=== PATIENT | male | born 2000 | race Two or more races ===

== ENCOUNTER 2021-02-15 08:07 | Outpatient (REF) | payer OTHER, SELFPAY ==
--- NOTE | 2021-02-17 12:45 | MHC.AU.ANO ---
Adult Audiological Evaluation Date of Visit: 02/15/21 Sales Support Rep Used: Not Applicable Reason for Appointment: Audiologic evaluation due to ear pain and occasional tinnitus. 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 He uses cushioned headphones, but needs to increase the loudness of different parts of the music to when mixing. When the music loudness increases, it causes ear pain, and occasional tinnitus with a fluctuating change in hearing. Chucho also recently started working in an [employer] shop where he is exposed to machines. Does patient feel they have a hearing loss?: Yes If Yes, Which Ear?: Both Ears When Was Hearing Difficulty First Noticed?: Later part 2019 Has hearing been tested previously?: No Hearing Handicap Inventory: HHIE SCORE: 8 Based on HHIE score, patient has: No perceived hearing handicap Ear History: Recent Ear Pain: Both ears with loud music Bothersome Tinnitus/Ringing/Noises in Ears: Occasionally in both ears with loud music Ear used on the phone: Right Ear History of occupational noise exposure?: Yes History: History: No Medical History: Medical History: Unremarkable Medical History Medication List: None Otoscopy: Right Ear: Unremarkable Left Ear: Unremarkable Tympanometry: Tympanometry performed due to: To assess integrity of the middle ear system Right Ear: Normal Middle Ear System (Type A) Left Ear: Normal Middle Ear System (Type A) Otoacoustic Emissions Frequency Range Used: 1.5-12 kHz Right Ear Results: Present emissions 1500-10,000 Hz. Absent 12,000 Hz Analysis: Present emissions suggest normal cochlear function Rules out peripheral hearing loss greater than a mild degree Left Ear Results: Present Emissions Analysis: Present emissions suggest normal cochlear function Rules out peripheral hearing loss greater than a mild degree Hearing Evaluation: Transducer(s) Used: Insert Earphones Method: Conventional Audiometry Stimuli Used: Pure Tones Right Ear: Description of Hearing: Normal hearing thresholds 250-8000 Hz Left Ear: Description of Hearing: Normal hearing thresholds 250-8000 Hz Speech Recognition Threshold (SRT): Method Used: Monitored Live Voice Stimuli Used: Spondee Words Right Ear: 0 dB HL Left Ear: 0 dB HL Word Discrimination: Method: Recorded Lists Word Lists Used: NU-6 Right Ear: 100% at 40 dB HL Left Ear: 100% at 40 dB HL Interpretation of Results: Chucho's reported ear symptoms are likely related to the level of music he is intermittently exposed to. While it is very important for Chucho to hear each part of his music production, the auditory system needs to be protected. It is impressive Chucho recognized this potential problem and sought this evaluation. We discussed various earphone products which could help him hear the different music parts without having to increase the volume. Recommendations: - No further audiological action is indicated at this time. - Hearing protection should be used when around loud noise. * Advise Chucho to obtain new earphone/headphones made specifically for music mixing/production. Any custom product can unfortunately cost a great deal of money. I recommend he research the website [employer] for non-custom in-the-ear monitors which are more reasonably priced. If cushioned headphones are desired, a product such as Sennheiser HD 600 Open Dynamic HiFi Professional Headphones may meet his needs. In researching products, it appears the in-the-ear monitors may provide more protection as they don't require the music to be increased as much to hear the various music parts. Diagnosis: Primary Diagnosis: H93.293 Abnormal Auditory Perception Secondary Diagnosis: H93.13 Tinnitus, Bilateral Services Performed: Comprehensive Audiological Evaluation (CPT 54343) Diagnostic Otoacoustic Emissions (CPT 61386, 26+TC) Tympanometry (CPT 08889) Signature: Provider: Emelina Padilla, [facility]
== END 2021-02-15 08:08 | disposition home or self-care (01) ==
LOC: HO.SH 08:07
PROVIDERS: Visit Provider Pediatrics
DX: H93.293 Other abnormal auditory perceptions, bilateral (principal); H93.13 Tinnitus, bilateral
CPT/HCPCS: 92557; 92567; 92588

== ENCOUNTER 2024-10-14 08:25 | Outpatient (REF) | payer OTHER, SELFPAY ==
--- NOTE | ~2024-10-14 | XR_ITS ---
CLINICAL HISTORY: M25.569 - Pain in unspecified knee Right knee three views Comparison: None Findings: No acute fracture or dislocation noted. No significant joint effusion identified. No soft tissue foreign body. Impression: No acute bony abnormality Standing bilateral AP knees Comparison: None Findings: No acute fracture or dislocation identified. No acute focal bony abnormality. No radiopaque foreign body noted. Impression: No acute bony abnormality This document has been electronically signed by: Ernie Andrea MD on 10/14/2024 20:59:58
--- OUTSIDE RECORDS SUMMARY | 2024-10-15 08:33 | XMS_ITS | Clinical Summary ---
Author Organization [email or web address] it Address [address] [place] [address] Care Team Providers Care Die Equipment Operator Name Role Phone Otilio Jackman MD Primary Care Provider [phone] Allergies No known active allergies Active Problems Problem Noted Date Diagnosed Date Tinnitus 03/07/2021 Overview (05/05/2024): 02/17/2021 normal hearing. Most likely related with level of music he is exposed to. Recommendations given. 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 Immunizations Name Administration Dates Next Due DTaP (Infanrix) 6wks to less than 7yo ,10/22/2002,2001,08/21,2001 [id number] (Pentacel) 2mo to less than 5yo 08/20/2002,2001,2001,07/01 [...] 8:30 AM EDT Office Visit Adult Medicine [address] [address] Rashida Jarrell PA [address] [place] [id number] Health Maintenance Due Date Last Done Comments [...] Recently Relevant to Health Maintenance Care Teams Die Equipment Operator Relationship Specialty Start Date End Date Otilio Jackman MD [address] [place] [address] PCP - General Internal Medicine 09/26/21
== END 2024-10-14 08:26 | disposition home or self-care (01) ==
LOC: HO.HOSX 08:25
PROVIDERS: Visit Provider Physician Assistant
DX: M25.561 Pain in right knee (principal)
CPT/HCPCS: 73562

== ENCOUNTER 2024-10-14 08:55 | Outpatient (AMB) | payer OTHER, SELFPAY ==
--- NOTE | 2024-10-14 09:00 | A.OFFVIS_ITS ---
Vital Signs 10/14/24 09:15 Height 5 ft 6 in Weight 130 lb BMI 21.0 Intake Visit Reasons: New Pt - right knee injury, DOI 08/03/24 Intake Note: Chucho is a 24 year old male who presents today as a new patient for a evaluation of his right knee pain, DOI 08/03/24. Patient states that he was playing basketball and he felt his knee move out of place. He mentions that his pain is on the medial and lateral aspect of the knee. Patient notices that his pain is worse when he is putting all his weight on the right side. He has tried and failed icing, elevation, taking Tylenol/ibuprofen or Motrin. IMPRESSION (08/17/24): There is no fracture or other acute abnormality. The joint space are maintained. There is no joint effusion. Allergies No Known Allergies Allergy (Verified 10/14/24 09:14) HPI HPI New Pt - right knee injury, DOI 08/03/24: Details: Mr. Mccartney is a 24-year-old male who presents to the office today for evaluation of a right knee injury that he sustained on 08/03/2024 while playing basketball. He believes he was doing a lay-up and on his way up to the hoop he believes that he stepped on someone's foot and twisted his knee. He felt immediate pain at that time but did not seek medical attention feeling as though it would resolve on its own. The pain has improved since that initial injury however he has episodes of sharp pain that lasts for a few moments and then slowly resolves. He finds more with twisting motions that he has an increase in this pain. 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 No tenderness to the medial or lateral joint lines. Mild discomfort with patellar grind. Negative Freida's. Negative anterior drawer. NVI. Assessment & Plan Assessment & Plan (1) Internal derangement of knee: Code(s): M23.90 - Unspecified internal derangement of unspecified knee Category: Medical Plan Mr. Mccartney is a 24-year-old male who presents to the office today for evaluation of a right knee injury that he sustained on 08/03/2024 while playing basketball. He believes he was doing a lay-up and on his way up to the hoop he believes that he stepped on someone's foot and twisted his knee. He felt immediate pain at that time but did not seek medical attention feeling as though it would resolve on its own. The pain has improved since that initial injury however he has episodes of sharp pain that lasts for a few moments and then slowly resolves. He finds more with twisting motions that he has an increase in this pain. 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 While in the office today, we discussed the roles of physical therapy and MRI imaging. A physical therapy order has been placed while in the office today. Additionally, an MRI was ordered to further evaluate the integrity of the knee and the surrounding structures. Based off of the patient's symptoms it is presenting as though he may have a meniscal injury but additionally may also have some underlying patella pathology given the location is deep inside of the knee and difficult to pinpoint. The patient will follow up after MRI is obtained, sooner if needed. X-rays of the right knee which were obtained while in the office today and were reviewed by me, Gerda Gauthier PA-C, revealed no acute fracture or dislocation. Orders: Orders XR knee RT 3V Today M25.569 - Pain in unspecified knee Coding Level of Care Code New Pt Level 4 (09510) Diagnoses Internal derangement of knee M23.90
[2024-10-14 09:15] VITALS: BMI 21.0
--- OUTSIDE RECORDS SUMMARY | 2024-10-14 09:35 | XMS_ITS | Clinical Summary ---
Author Organization [facility] it Address [address] [place] [address] Care Team Providers Care Lead Simulation Modeling Engineer Name Role Phone Otilio Jackman MD Primary Care Provider Allergies No known active allergies Active Problems Problem Noted Date Diagnosed Date Tinnitus 03/07/2021 Overview (05/05/2024): 02/17/2021 normal hearing. Most likely related with level of music he is exposed to. Recommendations given. 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 Immunizations Name Administration Dates Next Due DTaP (Infanrix) 6wks to less than 7yo ,10/22/2002,2001,08/21,2001 [id number] (Pentacel) 2mo to less than 5yo 08/20/2002,2001,2001,07/01 H1N1 Inj Preservative Free 04/03/2009 HPV 9-valent (Gardisil) 9yo to less than 46yo 05/31/2016,11/16/2015 HPV, Quadrivalent 04/22/2014 Hepatitis A Pediatric (Havri x; Vaqta) 12mo to less than 19yo 10/26/2010,11/03/2003,04/30/2003 Hepatitis B Pediatric (Enger ix B; Recombivax HB) to less than 20 yo 01/22/2002,2001,2001 IPV Inactivated polio (Ipol) 6wks and older 05/19/2005,2002,01/22/2002,08/21,2001 Influenza trivalent, 0.5mL, preservative free (Fluarix; FluLaval; Fluzone) ages 6mo and older (Afluria) 3 years and older 02/05/2019,03/28/2018,03/24/2017,02/11,03/09/2015,04/22/2014,03/14/2013 ,01/25/2012,03/07/2011,02/28/2010 MMR, measles mumps and rubel la Live (Priorix; M-M-R II) 12mo and older 05/19/2005,08/20/2002 Meningococcal MCV4P 10/29/2017,03/14/2013 Pneumococcal Conjugate Vacci ne, 7 Valent 10/22/2002,2001,2001,07/01 Tdap Tetanus diptheria acell ular pertussis (Boostrix; Adacel) 7yo and older 02/08/2024,03/14/2013 Varicella live (Varivax) 12m o and older 02/28/2010,04/23/2002 Surgical History Surgery Date Site/Laterality Comments OTHER SURGICAL HISTORY PROCEDURE: DENIES PREVIOUS SURGERY Medical History Medical History Date Comments Contact dermatitis and other eczema due to other specified agent DX:Contact dermatitis and ot her eczema due to other specified agent Lactose intolerance DX:Lactose i ntolerance Spermatocele 11/17/2014 DX:Spermatocele; COMMENT: At 14 yo, confirmed with US, seen by urology observation recommended, no FU mentioned on note. 12/27 increasing in size, ref to Uro, to have FU US then Fu to discuss 02/26 Uro: surg vs observation, mother considering surg, after sports in 08/15/16 Uro: no change, to have surgery Family History Medical History Relation Name Comments Other cancer Aunt Lung cancer Uncle Coronary artery disease Neg Hx Diabetes Neg Hx Relation Name Status Comments Aunt Alive Brother 1 Alive 12/14 Brother 2 Alive Brother 3 Alive Brother 4 Alive Brother 5 Alive Father Alive 01/27/67 Mother Alive 09/11/65 Uncle Alive Social History Tobacco Use Types Packs/Day Years Used Date Smoking Tobacco: Never Smokeless Tobacco: Never Alcohol Use Standard Drinks/Week Comments Never 0 (1 standard drink = 0.6 oz pur e alcohol) Sex and Gender Information Value Date Recorded Sex Assigned at Not on file Legal Sex Male 7:33 PM EST Gender Identity Not on file Sexual Orientation Not on file Obstetrics History Last Filed Vital Signs Vital Sign Reading Time Taken Comments Blood Pressure 122/70 02/08/2024 9:39 AM EDT Pulse 64 02/08/2024 9:39 AM EDT Temperature - - Respiratory Rate - - Oxygen Saturation - - Inhaled Oxygen Concentration - - Weight 65.3 kg (144 lb) 02/08/2024 9:39 AM EDT Height 162.6 cm (5' 4 ) 02/08/2024 9:39 AM EDT Body Mass Index 24.72 02/08/2024 9:39 AM EDT Plan of Treatment Upcoming Encounters Date Type Department Care Team (Late st Contact Info) Description 11/04/2024 8:30 AM EDT Office Visit Adult Medicine [address] [address] Rashida Jarrell PA [address] [place] [id number] Health Maintenance Due Date Last Done Comments Meningococcal B Vaccine (1 of 2 - Standard) 2017 Depression Screening 04/15/2022 HIV Screening 04/15/2022 Hepatitis C Screening 04/15/2022 Social Influencers of Health Screening 04/15/2022 COVID-19 Vaccine ( season) 2024 Influenza Vaccine (Season Ended) 2025 02/05/2019, 03/28/2018, 03/24/2017, Additional history exists Cholesterol Screening (Lipid Panel) 02/07/2029 02/08/2024, 02/08/2024 DTaP,Tdap,and Td Vaccines (8 - Td or Tdap) 02/07/2034 02/08/2024, 03/14/2013, 07/25/2006, Additional history exists Hepatitis B Vaccines Completed 01/22/2002, 2001, 2001 HIB Vaccines Completed 08/20/2002, 10/12, 2001, Additional history exists Pneumococcal Vaccine: Pediatrics (0 to 5 Years) and At-Risk Patients (6 to 64 Years) Completed 10/22/2002, 2001, 2001, Additional history exists IPV Vaccines Completed 05/19/2005, 01/2003, 2002, Additional history exists MMR Vaccines Completed 05/19/2005, 10/2005, 08/20/2002, Additional history exists Varicella Vaccines Completed 02/28/2010, 0 05/19/2005, 08/20/2002, Additional history exists Hepatitis A Vaccines Completed 10/26/2010, 11/03/2003, 04/30/2003 HPV Vaccines Completed 05/31/2016, 09/2015, 04/22/2014 Meningococcal ACWY Vaccine Completed 10/29/2017, RSV Immunization Patients Under 20 months Aged Out No longer eligible based on patient's age to complete this topic Procedures Procedure Name Priority Date/Time Associated Diagnosis Comments LIPID PANEL Routine 02/08/2024 from Last 3 Months or Most Recently Relevant to Health Maintenance Results * Lipid panel (02/08/2024) LDL/HDL Ratio 3 0 - 4 Triglycerides 49 0 - 150 mg/dL Cholesterol 156 0 - 200 mg/dL HDL 57 >=40 mg/dL LDL Cholesterol 90 0 - 100 mg/dL Blood Venous blood specimen / Unknown us Historical Provider LAB BLOOD ORDERABLES Inna l Result from Last 3 Months or Most Recently Relevant to Health Maintenance Care Teams Lead Simulation Modeling Engineer Relationship Specialty Start Date End Date Otilio Jackman MD [address] [place] [address] PCP - General Internal Medicine 09/26/21
== END 2024-10-14 09:29 | disposition home or self-care (01) ==
LOC: HO.HOS 08:56
PROVIDERS: Visit Provider Physician Assistant
DX: M23.91 Unspecified internal derangement of right knee (principal)
CPT/HCPCS: 99203

== ENCOUNTER → 2024-10-14 08:57 | Outpatient (BNV) | payer OTHER, SELFPAY | PROVIDERS: Visit Provider Radiology Diagnostic Radiology | DX: M25.561 Pain in right knee (principal) | CPT/HCPCS: 73562 ==

== ENCOUNTER → 2024-10-30 19:00 | Outpatient (BNV) | payer OTHER, SELFPAY | PROVIDERS: Visit Provider Radiology Diagnostic Radiology | DX: S83.511A Sprain of anterior cruciate ligament of right knee, initial encounter (principal) | CPT/HCPCS: 73721 ==

== ENCOUNTER 2024-10-30 19:05 | Outpatient (REF) | payer OTHER, SELFPAY ==
--- NOTE | ~2024-10-30 | MR_ITS ---
CLINICAL HISTORY: M23.91 - Unspecified internal derangement of right knee MR right knee without gadolinium Comparison: None provided Findings: There is mild bone bruising of the lateral femoral condyle and lateral tibial plateau without evidence of a fracture. No joint effusion. Anterior and posterior cruciate ligaments are intact. Collateral ligaments are intact. Patellar retinacula and iliotibial band are intact. Quadriceps, patellar, popliteus, and flexor tendons are intact. There are no meniscal tears. The ACL is edematous suggesting a partial tear or interstitial tear. Some fibers appear to be intact. The rest of the ligamentous structures are normal. IMPRESSION: 1. Suspect at least a partial ACL tear. 2. Bone bruising lateral femoral condyle and lateral tibial plateau. This document has been electronically signed by: Fidencio Live MD on 11/01/2024 11:22:44
== END 2024-10-30 19:06 | disposition home or self-care (01) ==
LOC: HO.MRI 19:05
PROVIDERS: Visit Provider Physician Assistant
DX: M23.91 Unspecified internal derangement of right knee (principal)
CPT/HCPCS: 73721

== ENCOUNTER 2024-11-21 13:44 | Outpatient (AMB) | payer OTHER, SELFPAY ==
--- NOTE | 2024-11-21 14:37 | A.OFFVIS_ITS ---
Intake Visit Reasons: right knee MRI review Allergies No Known Allergies Allergy (Verified 10/14/24 09:14) HPI HPI right knee MRI review: Details: Mr. Mccartney is a 24-year-old male who presents via telehealth appointment to discuss right knee MRI imaging. Patient states that his knee continues to remain the same. He does have episodes of giving out and pain. 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 Review of Systems Const All systems reviewed & are unremarkable except as noted in HPI and below Telehealth Telehealth Telehealth Platform: Telephone Location of provider rendering services: practice address Location of patient: address on file Patient Identification confirmed using: Name, : Yes Telehealth method: voice only Patient verbally consented to treatment: Yes Patient verbally consented to billing insurance company: Yes Patient informed of any privacy concerns related to visit: Yes Minutes spent on Phone/Video with Pt.: 15 Assessment & Plan Assessment & Plan (1) Partial tear of anterior cruciate ligament of knee: Code(s): S83.519A - Sprain of anterior cruciate ligament of unspecified knee, initial encounter Category: Medical (2) Knee contusion: Code(s): S80.00XA - Contusion of unspecified knee, initial encounter Category: Medical Plan During our telehealth appointment today Mr. Mccartney and I discussed the MRI results of his right knee. There is a suspected ACL tear. It is unclear if this is partial or full-thickness. Additionally, there is bone bruising on the lateral femoral condyle and lateral tibial plateau. I discussed these findings with the patient and developed a collaborative treatment plan. The 1st step is to have the patient begin physical therapy in which his evaluation appointment on 11/18/2024. His next physical therapy appointment as scheduled for 12/02/2024. I would like to see the patient back in 4 weeks after physical therapy did discuss continued conservative versus surgical intervention. Right knee MRI obtained on 11/01/2024: IMPRESSION: 1. Suspect at least a partial ACL tear. 2. Bone bruising lateral femoral condyle and lateral tibial plateau. Coding Level of Care Code Tele Est Pt Level 3 (52147) Diagnoses Partial tear of anterior cruciate ligament of knee S83.519A Knee contusion S80.00XA
== END 2024-11-21 14:21 | disposition home or self-care (01) ==
LOC: HO.HOS 13:44
PROVIDERS: Visit Provider Physician Assistant
DX: S83.519A Sprain of anterior cruciate ligament of unspecified knee, initial encounter (principal); S80.00XA Contusion of unspecified knee, initial encounter
CPT/HCPCS: 99213

== ENCOUNTER 2024-12-23 12:58 | Outpatient (AMB) | payer OTHER, SELFPAY ==
--- NOTE | 2024-12-23 13:05 | A.OFFVIS_ITS ---
Vital Signs 12/23/24 13:23 Height 5 ft 6 in Weight 130 lb BMI 21.0 Intake Visit Reasons: OV - right knee pain Intake Note: Chucho is a 24 year old male who presents today for follow up of his right knee pain due to a partial tear of anterior cruciate ligament of knee. At his last telehealth visit treatment plan was discussed involving physical therapy with a 4 week follow up for discussion of continued conservative treatment versus surgical intervention. He states that he was able to go to one session of physical therapy. Patient states that he was given some excises to do at home but patient is doing them at the gym which helps for his mobility but no this pain. Allergies No Known Allergies Allergy (Verified 12/23/24 13:23) HPI HPI OV - right knee pain: Details: Mr. Mccartney is a 24-year-old male who presents to the office today for follow up of right knee pain. At his last appointment on 11/21/2024 the patient was recommended to continue physical therapy and discuss conservative versus surgical intervention after trial of physical therapy. He states that he was able to go to 1 session of physical therapy and then attempted to perform a home exercise program. He reports that it is difficult to attend physical therapy sessions as he has a at home. He continues to have pain. 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 Full range of motion. Slight tenderness to the medial or lateral joint lines. NVI. Assessment & Plan Assessment & Plan (1) Partial tear of anterior cruciate ligament of knee: Code(s): S83.519A - Sprain of anterior cruciate ligament of unspecified knee, initial encounter Category: Medical Plan Mr. Mccartney is a 24-year-old male who presents to the office today for follow up of right knee pain. At his last appointment on 11/21/2024 the patient was recommended to continue physical therapy and discuss conservative versus surgical intervention after trial of physical therapy. He states that he was a ble to go to 1 session of physical therapy and then attempted to perform a home exercise program. He reports that it is difficult to attend physical therapy sessions as he has a at home. He continues to have pain. While in the office today, I discussed the importance of attending physical therapy and ACL prehab. MRI obtained on 11/01/2024 with significant for a partial ACL tear as well as bone bruising on the lateral femoral condyle and lateral tibial plateau. Patient reports that he does have episodes of giving out but has decreased slightly since injury. He is interested in discussing surgical intervention for ACL reconstruction. However, he is concerned about the amount of dedication to physical therapy and lengthy recovery. He would like to speak with Dr. Patel to further discuss surgical intervention. He will follow up with Dr. Patel, sooner if needed. MRI right knee 11/01/2024: IMPRESSION: 1. Suspect at least a partial ACL tear. 2. Bone bruising lateral femoral condyle and lateral tibial plateau. Coding Level of Care Code Est Pt Level 3 (65297) Diagnoses Partial tear of anterior cruciate ligament of knee S83.519A
[2024-12-23 13:23] VITALS: BMI 21.0
--- OUTSIDE RECORDS SUMMARY | 2024-12-23 13:44 | XMS_ITS ---
Author Name [facility] Organization Unknown Care Team Organization Name Specialty Phone Email Start Date End Da te [facility] Otilio Jackman Primary Care 03/21/202212/12
== END 2024-12-23 13:45 | disposition home or self-care (01) ==
LOC: HO.HOS 12:59
PROVIDERS: Visit Provider Physician Assistant
DX: S83.511A Sprain of anterior cruciate ligament of right knee, initial encounter (principal)
CPT/HCPCS: 99213